=== PATIENT | male | born 1985 | race Caucasian/White ===

== ENCOUNTER 2020-10-20 07:43 | Emergency (ER) | payer MEDICAID ==
[~2020-10-20] VITALS: Ht 170.2 cm; Wt 56.8 kg
[2020-10-20 07:49] VITALS: BP 111/72
[2020-10-20] MEDS ORDERED: penicillin V potassium 500mg tablet PO ONE (08:35)
[2020-10-20] MEDS ORDERED: PENI500T2 PO (08:46)
== END 2020-10-20 08:53 | disposition home or self-care (01) ==
LOC: ER 07:44
DX: K08.89 Other specified disorders of teeth and supporting structures (principal); F17.200 Nicotine dependence, unspecified, uncomplicated; Z79.2 Long term (current) use of antibiotics
CPT/HCPCS: 99283